=== PATIENT | male | born 1965 | race African-American/Black ===

== ENCOUNTER 2020-07-19 12:01 | Emergency (ER) | payer BC ==
[2020-07-19 12:16] VITALS: BP 127/88
[2020-07-19] MEDS ORDERED: LIDOCAINE (1%) 10 MG/1 ML VIAL 20 ML MDV INFILTRATI ONE (13:49)
[2020-07-19] MEDS ORDERED: HYDROcodone/ACETAMINOPHEN 5-325 MG TAB PO ONE (13:49)
[2020-07-19] MEDS ORDERED: BUPIVACAINE/PF (0.5%) 5 MG/1 ML 10 ML VIAL INFILTRATI ONE (13:49)
[2020-07-19] MEDS ORDERED: DIPHtheria,PERTUSSIS(ACELL),TETANUS VACCINE/PF 0.5 ML VIAL IM ONE (13:49)
--- NOTE | 2020-07-19 14:03 | Emergency Department Report ---
- General Chief Complaint: Wound/Laceration Stated Complaint: RT FINGER LAC Time Seen by Provider: 07/19/20 13:42 Source: patient Mode of arrival: Ambulatory Limitations: No Limitations - History of Present Illness Initial Comments: Patient is a 55-year-old male presents emergency room complaints of a laceration to the right index finger that occurred around 11 AM today. He states that he accidentally cut it with a chop saw. He denies any numbness or weakness. He is still able to move the finger. He is unsure of his last tetanus immunization. He states that he did not drive to the emergency department today. He denies any past medical history or allergies to medications. He currently has a finger wrapped in gauze. - Related Data Previous Rx's Medication Instructions Recorded Last Taken Type Naproxen [EC-Naprosyn] 500 mg PO BID PRN #14 tablet. 07/19/20 Unknown Rx cephALEXin [Keflex] 500 mg PO QID 7 Days #28 capsule 07/19/20 Unknown Rx Allergies Allergy/AdvReac Type Severity Reaction Status Date / Time No Known Allergies Allergy Unverified 07/19/20 12:15 ED Review of Systems ROS: Stated complaint: RT FINGER LAC Other details as noted in HPI Comment: All other systems reviewed and negative ED Past Medical Hx - Past Medical History Previous Medical History?: No - Surgical History Additional Surgical History: abdominal - Social History Smoking Status: Current Some Day Smoker - Medications Home Medications: Home Medications Medication Instructions Recorded Confirmed Last Taken Type Naproxen [EC-Naprosyn] 500 mg PO BID PRN #14 tablet. 07/19/20 Unknown Rx cephALEXin [Keflex] 500 mg PO QID 7 Days #28 capsule 07/19/20 Unknown Rx ED Physical Exam - General Limitations: No Limitations General appearance: alert, in no apparent distress - Head Head exam: Present: atraumatic, normocephalic - Eye Eye exam: Present: normal appearance - ENT ENT exam: Present: mucous membranes moist - Extremities Exam Extremities exam: Present: other (2 cm irregularly shaped laceration present to the right index finger on the palmar surface, no visualized foreign body, no muscle/tendon involvement, FROM of the right digits and hand, neurovascularly intact) - Neurological Exam Neurological exam: Present: alert, oriented X3 - Psychiatric Psychiatric exam: Present: normal affect, normal mood - Skin Skin exam: Present: warm, dry ED Course Vital Signs 07/19/20 12:13 Temperature 97.7 F Pulse Rate 85 Respiratory 20 Rate Blood Pressure 127/88 O2 Sat by Pulse 98 Oximetry - Laceration /Wound Repair Right Palm Finger Wound Location: upper extremity (palmar surface of the right index finger) Wound Length (cm): 2 Wound's Depth, Shape: irregular Wound Explored: clean Irrigated w/ Saline (ccs): 100 Betadine Prep?: Yes Volume Anesthetic (ccs): 8 (50-50 mixture of 1% lidocaine without epinephrine and 0.5% bupivacaine without epinephrine) Wound Debrided: extensive Wound Repaired With: sutures Suture Size/Type: 4:0, proline Number of Sutures: 6 Layer Closure?: No Sterile Dressing Applied?: Yes Progress: Wound irrigated with saline and thoroughly scrubbed with Betadine, no foreign body identified, no muscle or tendon involvement, digital block performed with a total of 8 cc of a 50-50 mixture of 1% lidocaine without epinephrine and 0.5% bupivacaine without epinephrine, Betadine prep again, sterile drapes applied, 4- 0 Prolene used for skin closure, 6 sutures placed, patient tolerated well, no complications, bleeding controlled, sterile dressing applied ED Medical Decision Making - Radiology Data Radiology results: report reviewed RIGHT INDEX FINGER 4 VIEWS INDICATION / CLINICAL INFORMATION: Right index finger laceration. COMPARISON: None available. FINDINGS: BONES and JOINT(S): No acute fracture or subluxation. No significant arthritis. SOFT TISSUES: A bandage overlies the middle phalanx of the index finger. There is generalized edema along the index finger without a distinct soft tissue defect or radiopaque foreign body. ADDITIONAL FINDINGS: None. IMPRESSION: Right index finger edema without additional significant abnormalities. Signer Name: Michael Lowe MD Signed: 07/19/2020 2:20 PM Workstation Name: [id number] Transcribed By: MN Dictated By: Michael Lowe MD Electronically Authenticated By: Michael Lowe MD Signed Date/Time: 07/19/20 142 DD/ 1419 TD/TT: - Medical Decision Making Patient is a 55-year-old male presents emergency room complaints of a laceration to the right index finger that occurred around 11 AM today. He states that he accidentally cut it with a chop saw. He denies any numbness or weakness. He is still able to move the finger. He is unsure of his last tetanus immunization. He states that he did not drive to the emergency department today. He denies any past medical history or allergies to medications. He currently has a finger wrapped in gauze. vitals are normal. on exam: 2 cm irregularly shaped laceration present to the right index finger on the palmar surface, no visualized foreign body, no muscle/tendon involvement, FROM of the right digits and hand, neurovascularly intact. due to mechanism of injury with saw, XR ordered. XR right hand: Right index finger edema without additional significant abnormalities. Laceration repaired per procedure note without any complications. Patient given prescription for naproxen and Keflex. Advised patient Please take medication as prescribed. Please keep area clean, dry, covered. May wash with soap and water and pat dry. No hot tub, no pool, no soaking in water. Sutures need to be removed in 10 days. Follow-up with a primary care doctor. Return to emergency room for any new or worsening symptoms. Critical care attestation.: If time is entered above; I have spent that time in minutes in the direct care of this critically ill patient, excluding procedure time. ED Disposition Clinical Impression: Laceration of right index finger Qualifiers: Encounter type: initial encounter Damage to nail status: without damage Foreign body presence: without foreign body Qualified Code(s): S61.210A - Laceration without foreign body of right index finger without damage to nail, initial encounter Disposition: - TO HOME OR SELFCARE Is pt being admited?: No Does the pt Need Aspirin: No Condition: Stable Instructions: Suture Care (ED), Laceration (ED) Additional Instructions: Please take medication as prescribed. Please keep area clean, dry, covered. May wash with soap and water and pat dry. No hot tub, no pool, no soaking in water. Sutures need to be removed in 10 days. Follow-up with a primary care [facility]. Return to emergency room for any new or worsening symptoms. Prescriptions: Naproxen [EC-Naprosyn] 500 mg PO BID PRN #14 tablet.dr OJEDA Reason: pain cephALEXin [Keflex] 500 mg PO QID 7 Days #28 capsule Referrals: PRIMARY CARE, [Primary Care Provider] - 2-3 Days Time of Disposition: 15:03 Print Language: SYRIAC
--- NOTE | 2020-07-19 14:24 | XRay Report ---
RIGHT INDEX FINGER 4 VIEWS INDICATION / CLINICAL INFORMATION: Right index finger laceration. COMPARISON: None available. FINDINGS: BONES and JOINT(S): No acute fracture or subluxation. No significant arthritis. SOFT TISSUES: A bandage overlies the middle phalanx of the index finger. There is generalized edema a long the index finger without a distinct soft tissue defect or radiopaque foreign body. ADDITIONAL FINDINGS: None. IMPRESSION: Right index finger edema without additional significant abnormalities. Signer Name: Michael Lowe MD Signed: 07/19/2020 2:20 PM Workstation Name: [id number]
== END 2020-07-19 15:23 | disposition home or self-care (01) ==
LOC: ED 12:01
DX: S61.210A Laceration without foreign body of right index finger without damage to nail, initial encounter (principal); F17.200 Nicotine dependence, unspecified, uncomplicated; Z98.890 Other specified postprocedural states; Z79.899 Other long term (current) drug therapy; W31.89XA Contact with other specified machinery, initial encounter; Y93.89 Activity, other specified; Y92.89 Other specified places as the place of occurrence of the external cause; Y99.8 Other external cause status
CPT/HCPCS: 90471; 90715